=== PATIENT | male | born 2000 | race Caucasian/White ===

== ENCOUNTER 2021-04-29 13:13 | Emergency (ER) | payer OTHER ==
[~2021-04-29] VITALS: Ht 182.9 cm; Wt 63.5 kg
[~2021-04-29 13:13] MED LIST: Cyclobenzaprine5 MG PO
[2021-04-29] MEDS ORDERED: IBUP800 PO (14:41)
== END 2021-04-29 14:55 | disposition home or self-care (01) ==
LOC: ER 13:13
DX: R60.0 Localized edema (principal); F19.90 Other psychoactive substance use, unspecified, uncomplicated; J45.909 Unspecified asthma, uncomplicated; F17.200 Nicotine dependence, unspecified, uncomplicated
CPT/HCPCS: 99283; A9270